=== PATIENT | male | born 1995 | race Caucasian/White ===

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

== ENCOUNTER 2017-08-24 17:41 | Emergency (ER) ==
[2017-08-24 17:49] VITALS: BP 126/72; TEMP 98.4; BMI 22.9
--- NOTE | 2017-08-24 18:15 | ED.PDOC ---
General ED Provider: Dr. GUILLERMINA MORIN Chief Complaint: Nausea/Vomiting Stated Complaint: n/v Time Seen by Physician: 18:00 Mode of Arrival: Walk-In Information Source: Patient, Family Exam Limitations: No limitations Primary Care Provider: RICHA GARCIA Referred to ED by: Other (none toxic presentation ) Nursing and Triage Documentation Reviewed and Agree: Yes Reviewed sepsis parameters & appropriate labs ordered?: Yes (seen with pavithra beltre at all times ) System Inflammatory Response Syndrome: Not Applicable Sepsis Protocol: For patient's 13 years and over: Temp is 96.8 and below OR 101 and greater Pulse >90 BPM Resp >20/minute Acutely Altered Mental Status Are patient's symptoms suggestive of a new infection, such as: -Pneumonia -Skin, Soft Tissue -Endocarditis -UTI -Bone, Joint Infection -Implantable Device -Acute Abdominal Infection -Wound Infection -Meningitis -Blood Stream Catheter Infection -Unknown GI Complaint Exam - Vomiting/Diarrhea Complaint/Exam Onset/Duration: 1 day Symptoms Are: Resolved Episodes of Vomiting over last 24 Hours: 3 Episodes of Diarrhea Over Last 24 Hours: 0 Initial Severity: Mild Current Severity: None Character of Vomiting: Reports: Non-bilious Aggravating: Reports: None Alleviating: Reports: None Associated Signs and Symptoms: Reports: Abdominal pain. Denies: Dizziness, Light-headedness, Melena, Hematemesis, Fever, Cramping Non-GI Risk Factors: Reports: None Surgical Obstruction Risk Factors: Reports: None Related Surgical History: Reports: None Abdominal Findings: Present: None Differential Diagnoses: Viral Gastroenteritis Review of Systems - Review Of Systems Constitutional: Reports: No symptoms Eyes: Reports: No symptoms Ears, Nose, Mouth, Throat: Reports: No symptoms Respiratory: Reports: No symptoms Cardiac: Reports: No symptoms GI: Reports: Abdominal pain, Nausea, Vomiting : Reports: No symptoms Musculoskeletal: Reports: No symptoms Skin: Reports: No symptoms Neurological: Reports: No symptoms Endocrine: Reports: No symptoms Hematologic/Lymphatic: Reports: No symptoms All Other Systems: Reviewed and Negative Past Medical History - Past Medical History Previously Healthy: Yes Endocrine: Reports: None Cardiovascular: Reports: None Respiratory: Reports: None Hematological: Reports: None Gastrointestinal: Reports: None Genitourinary: Reports: None Neuro/Psych: Reports: None Musculoskeletal: Reports: None Cancer: Reports: None - Surgical History General Surgical History: Reports: None - Family History Family History: Reports: None - Social History Smoking Status: Former smoker Hx Substance Use: No Alcohol Screening: None Physical Exam - Physical Exam Appearance: Well-appearing, No pain distress, Well-nourished Eyes: PADDY, EOMI, Conjunctiva clear ENT: Ears normal, Nose normal, Oropharynx normal Respiratory: Airway patent, Breath sounds clear, Breath sounds equal, Respirations nonlabored Cardiovascular: RRR, Pulses normal, No rub, No murmur GI/: Soft, Nontender, No masses, Bowel sounds normal, No Organomegaly Musculoskeletal: Normal strength, ROM intact, No edema, No calf tenderness Skin: Warm, Dry, Normal color Neurological: Sensation intact, Motor intact, Reflexes intact, Cranial nerves intact, Alert, Oriented Psychiatric: Affect appropriate, Mood appropriate Interpretation - Radiology Interpretation Radiology Interpretation By: Radiologist Critical Care Note - Critical Care Note Total Time (mins): 0 Course - Course Orders, Labs, Meds: Orders Category Date Time Status CBC W/ AUTO DIFF Stat LAB 08/24/17 18:09 Ordered COMPREHENSIVE METABOLIC PANEL Stat LAB 08/24/17 18:09 Ordered RAPID FLU A/B Stat LAB 08/24/17 18:09 Uncollected RAPID STREP SCREEN [STREP SCREEN] Stat LAB 08/24/17 18:10 Uncollected URINALYSIS C & S IF INDICATED Stat LAB 08/24/17 18:[address] ABDOMEN/PELVIS WO CONTRAST Stat RADS 08/24/17 18:09 Ordered Vital Signs: Temp Pulse Resp BP Pulse Ox 08/24/17 17:41 98.4 F 77 16 126/72 98 Departure - Departure Time of Disposition: 18:14 Disposition: HOME SELF-CARE Discharge Problem: Nausea, Vomiting Vomiting alone Qualifiers: Vomiting type: unspecified Vomiting Intractability: non-intractable Qualified Code(s): R11.11 - Vomiting without nausea Instructions: Acute Nausea and Vomiting (ED) Condition: Good Pt referred to PMD for follow-up: Yes Additional Instructions: Please call your Family Physician as soon as possible to schedule a follow-up appointment. Allergies/Adverse Reactions: Allergies No Known Allergies Allergy (Verified 08/24/17 17:49) Home Medications: Ambulatory Orders Omeprazole Magnesium [Prilosec Otc] 20 mg PO DAILY 08/24/17 Disposition Discussed With: Patient
--- NOTE | 2017-08-24 18:42 | CT ---
EXAM: CT scan abdomen pelvis without contrast HISTORY: Nausea abdominal pain COMPARISON: CT scan abdomen pelvis 12/29/2016 FINDINGS: Contiguous axial images obtained from lung bases to the symphysis pubis without contrast u tilizing 3-mm collimation. Sagittal and coronal reconstructions were imaged and reviewed.. The visu alized lung bases are clear. The gallbladder is fluid filled without cholelithiasis. The liver, neely creas, spleen and adrenal glands have normal unenhanced CT appearance. The abdominal aorta is normal in course and caliber. The kidneys are morphologically normal. There is normal retrocecal appendix .. There are scattered subcentimeter mesenteric lymph nodes.. There are prominent small bowel loops which may be related to ileus and/or gastroenteritis. There is no free fluid or inflammatory change s.. Bone windows reveals no evidence of lytic or blastic lesions. IMPRESSION: Prominent small bowel loops which may be related to ileus and/or gastroenteritis. Normal appendix. No evidence of free fluid or inflammatory changes.
== END 2017-08-24 19:24 | disposition home or self-care (01) ==
LOC: ED 17:41
DX: R11.2 Nausea with vomiting, unspecified (principal); R10.9 Unspecified abdominal pain
CPT/HCPCS: 36415; 80053; 81001; 85025; 87502; 87651; 87880; 99283

== ENCOUNTER 2018-09-13 15:49 | Outpatient (CLI) | END 2018-09-13 15:50 | disposition home or self-care (01) | LOC: RHC-LAB 15:49 | PROVIDERS: ATTEND Nurse Practitioner Family | DX: Z00.00 Encounter for general adult medical examination without abnormal findings (principal) | CPT/HCPCS: 36415; 80053; 80061; 85025 ==